=== PATIENT | male | born 1960 | race Caucasian/White ===

== ENCOUNTER 2022-03-29 08:11 | Inpatient (IN) | payer BC ==
[2022-03-29] MEDS ORDERED: SODIUM CHLORIDE 0.9% 1,000 ML IV STA ×2 (08:34→10:09)
--- NOTE | 2022-03-29 08:48 | ED ---
General Adult HPI - General Chief complaint: Syncope Stated complaint: syncope Time Seen by Provider: 03/29/22 08:21 Source: patient, RN notes reviewed, old records reviewed Mode of arrival: EMS - History of Present Illness Initial comments: Patient is a 62-year-old male with past medical history remarkable for alcohol abuse, currently in rehab, last drink 3 weeks ago who presents emergency Department complaining of lightheadedness. Patient has been having these symptoms since he stopped drinking alcohol 3 weeks ago. States it is not any worse than normal. However today when he got up to walk to his medications, he did feel very lightheaded and lowered himself down onto his butt. He did not lose consciousness. States he was "out of it." [place] sent him here for further evaluation. States he currently feels okay. Believes he is dehydrated. Denies lightheadedness, shortness of breath, chest pain. Has chronically yellow eyes. Endorse's improved lower extremity swelling since he stopped drinking alcohol. Denies cough, fevers, chills. Denies abdominal pain, nausea, vomiting. Chronically mildly distended abdomen. No other symptoms at this time. - Related Data Home Medications Medication Instructions Recorded Confirmed Ergocalciferol [Vitamin D2 (1250 1,250 mcg PO MO 03/29/22 03/29/22 Mcg = 78290 Iu)] Fluticasone/Umeclidin/Vilanter 1 puff INHALATION RT-DAILY 03/29/22 03/29/22 [Trelegy Ellipta 100-62.5-25] Folic Acid 1 mg PO DAILY 03/29/22 03/29/22 Lansoprazole [Prevacid] 30 mg PO AC-BRKFST 03/29/22 03/29/22 Losartan Potassium [Cozaar] 100 mg PO DAILY 03/29/22 03/29/22 Magnesium Oxide [Mag-Ox] 400 mg PO BID 03/29/22 03/29/22 Thiamine [Vitamin B-1] 100 mg PO DAILY 03/29/22 03/29/22 allopurinoL [Zyloprim] 100 mg PO DAILY 03/29/22 03/29/22 traZODone HCL [Desyrel] 50 - 150 mg PO HS 03/29/22 03/29/22 Allergies Allergy/AdvReac Type Severity Reaction Status Date / Time No Known Allergies Allergy Verified 03/29/22 10:15 Review of Systems ROS Statement: Those systems with pertinent positive or pertinent negative responses have been documented in the HPI. Review of Systems: CONST: Denies fever EYES: Denies blurry vision ENT: Denies nasal congestion C/V: Denies Chest pain RESP: Denies shortness of breath GI: Denies abdominal pain : Denies dysuria SKIN: Denies rash. MSK: Denies joint pain. NEURO: Denies headache ROS Other: All systems not noted in ROS Statement are negative. Past Medical History Past Medical History: Hypertension Additional Past Medical History / Comment(s): Gout, alcohol abuse-last used 03/09/22 History of Any Multi-Drug Resistant Organisms: None Reported Past Surgical History: Orthopedic Surgery Additional Past Surgical History / Comment(s): spleenectomy, vasectomy Smoking Status: Never smoker Past Alcohol Use History: Abuse Past Drug Use History: None Reported - Past Family History Father Family Medical History: No Reported History Additional Family Medical History / Comment(s): Father is healthy Mother Family Medical History: Hypertension General Exam - General Exam Comments Initial Comments: General: Appears in no acute distress. HEAD: Normal with no signs of head trauma. EYES: PERRLA, EOMI, Pupils are 3 mm and equal bilaterally. Scleral icterus is present. ENT: Hearing grossly intact, normal oropharynx. RESPIRATORY: Clear breath sounds bilaterally. No wheezes, rales, or rhonchi. C/V: Regular rate and rhythm. S1 and S2 auscultated, no edema, peripheral pulses 2+ and intact throughout ABD: Abdomen is soft, nontender. Chronically mild distention of the abdomen which is unchanged from baseline. EXT: Normal range of motion, no obvious deformity SKIN: No rashes or lesions observed on exposed skin. NEURO: Alert and oriented 4. No focal sensory strength deficits. Cranial nerves II through XII are intact. NIH is 0. GCS of 15. Course Vital Signs 03/29/22 08:14 Temperature 97.7 F Pulse Rate 109 H Respiratory 18 Rate Blood Pressure 127/76 O2 Sat by Pulse 99 Oximetry Medical Decision Making - Medical Decision Making Based on the patient's presentation and physical exam, he presents complaining of chronic lightheadedness. He believes he is dehydrated. States this has been ongoing for multiple weeks. Denies dizziness. Denies shortness of breath. Denies syncopal episodes. Denies worsening lower extremity edema or pain. Denies abdominal pain, nausea, vomiting. His chronic scleral icterus likely secondary to alcoholic liver disease. His no other acute symptoms at this time. Presents over his lightheadedness episode that he had earlier today at rehab. We'll obtain a broad workup including screening EKG as well as abdominal laboratory studies. He will be given a 1 L fluid bolus. Patient was in agreement this plan.Vital signs are remarkable for mild sinus tachycardia. Otherwise vitals are within normal limits. EKG shows no signs of acute ischemia.Lavatory studies are remarkable for a chronic macrocytic anemia. Patient's initial lactic acid is slightly elevated at 2.3. Patient has elevated bili is as well as liver function studies. These are likely chronic. Patient also has what appears to be an [place] eye of unknown chronicity. Remainder of the labs are unremarkable. I discussed times the patient. He believes that the bilirubin is lower than normal but cannot recall what it is been in the past. Orthostatics seem to be positive as well. Did recommend admission for IV fluids. He was in agreement this plan. We'll obtain ultrasounds of the liver and gallbladder as well. Ultrasounds revealed hepatic steatosis. There is a contracted gallbladder. There is also a cystic lesion in the right kidney. After the patient on these results. He will be admitted. I spoke with the admitting physician, Dr. Hernandez accepted the patient. Patient was admitted to observation. - Lab Data Result diagrams: 03/29/22 08:43 03/29/22 08:43 Lab Results 03/29/22 03/29/22 03/29/22 Range/Units 08:35 08:43 08:43 WBC 10.6 (3.8-10.6) k/uL RBC 2.65 L (4.30-5.90) m/uL Hgb 10.4 L (13.0-17.5) gm/dL Hct 32.6 L (39.0-53.0) % MCV 123.1 H (80.0-100.0) fL MCH 39.3 H (25.0-35.0) pg MCHC 31.9 (31.0-37.0) g/dL RDW 15.3 (11.5-15.5) % Plt Count 154 (150-450) k/uL MPV 11.5 Neutrophils % 68 % Lymphocytes % 21 % Monocytes % 5 % Eosinophils % 3 % Basophils % 1 % Neutrophils # 7.2 (1.3-7.7) k/uL Lymphocytes # 2.3 (1.0-4.8) k/uL Monocytes # 0.6 (0-1.0) k/uL Eosinophils # 0.3 (0-0.7) k/uL Basophils # 0.1 (0-0.2) k/uL Manual Slide Review Performed Large Platelets Present Hypochromasia Moderate Anisocytosis (manual) Present Macrocytosis Marked A Target Cells Present Sodium 137 (137-145) mmol/L Potassium 3.8 (3.5-5.1) mmol/L Chloride 110 H (98-107) mmol/L Carbon Dioxide 22 (22-30) mmol/L Anion Gap 5 mmol/L BUN 25 H (9-20) mg/dL Creatinine 1.61 H (0.66-1.25) mg/dL Est GFR (CKD-EPI)AfAm 53 (>60 ml/min/1.73 sqM) Est GFR (CKD-EPI)NonAf 46 (>60 ml/min/1.73 sqM) Glucose 142 H (74-99) mg/dL POC Glucose (mg/dL) (70-110) mg/dL POC Glu Director Multimedia ID Lactic Ac Sepsis Rflx Plasma Lactic Acid Tacos (0.7-2.0) mmol/L Calcium 8.3 L (8.4-10.2) mg/dL Total Bilirubin 6.8 H (0.2-1.3) mg/dL AST 146 H (17-59) U/L ALT 54 H (4-49) U/L Alkaline Phosphatase 296 H (38-126) U/L Total Protein 5.8 L (6.3-8.2) g/dL Albumin 2.6 L (3.5-5.0) g/dL Amylase 52 (30-110) U/L Lipase 185 (23-300) U/L Urine Color Yellow Urine Appearance Clear (Clear) Urine pH 6.5 (5.0-8.0) Ur Specific Squires 1.011 (1.001-1.035) Urine Protein Negative (Negative) Urine Glucose (UA) Negative (Negative) Urine Ketones Negative (Negative) Urine Blood Negative (Negative) Urine Nitrite Negative (Negative) Urine Bilirubin 1+ H (Negative) Urine Urobilinogen <2.0 (<2.0) mg/dL Ur Leukocyte Esterase Negative (Negative) Urine Opiates Screen Not Detected (NotDetected) Ur Oxycodone Screen Not Detected (NotDetected) Urine Methadone Screen Not Detected (NotDetected) Ur Propoxyphene Screen Not Detected (NotDetected) Ur Barbiturates Screen Not Detected (NotDetected) U Tricyclic Antidepress Not Detected (NotDetected) Ur Phencyclidine Scrn Not Detected (NotDetected) Ur Amphetamines Screen Not Detected (NotDetected) U Methamphetamines Scrn Not Detected (NotDetected) U Benzodiazepines Scrn Not Detected (NotDetected) Urine Cocaine Screen Not Detected (NotDetected) U Marijuana (THC) Screen Not Detected (NotDetected) Serum Alcohol <10 mg/dL Acetone, Qual Negative (Negative) 03/29/22 03/29/22 03/29/22 Range/Units 08:43 08:50 09:24 WBC (3.8-10.6) k/uL RBC (4.30-5.90) m/uL Hgb (13.0-17.5) gm/dL Hct (39.0-53.0) % MCV (80.0-100.0) fL MCH (25.0-35.0) pg MCHC (31.0-37.0) g/dL RDW (11.5-15.5) % Plt Count (150-450) k/uL MPV Neutrophils % % Lymphocytes % % Monocytes % % Eosinophils % % Basophils % % Neutrophils # (1.3-7.7) k/uL Lymphocytes # (1.0-4.8) k/uL Monocytes # (0-1.0) k/uL Eosinophils # (0-0.7) k/uL Basophils # (0-0.2) k/uL Manual Slide Review Large Platelets Hypochromasia Anisocytosis (manual) Macrocytosis Target Cells Sodium (137-145) mmol/L Potassium (3.5-5.1) mmol/L Chloride (98-107) mmol/L Carbon Dioxide (22-30) mmol/L Anion Gap mmol/L BUN (9-20) mg/dL Creatinine (0.66-1.25) mg/dL Est GFR (CKD-EPI)AfAm (>60 ml/min/1.73 sqM) Est GFR (CKD-EPI)NonAf (>60 ml/min/1.73 sqM) Glucose (74-99) mg/dL POC Glucose (mg/dL) 132 H (70-110) mg/dL POC Glu Director Multimedia ID Tyrel Weir Lactic Ac Sepsis Rflx Y Plasma Lactic Acid Tacos 2.3 H* (0.7-2.0) mmol/L Calcium (8.4-10.2) mg/dL Total Bilirubin (0.2-1.3) mg/dL AST (17-59) U/L ALT (4-49) U/L Alkaline Phosphatase (38-126) U/L Total Protein (6.3-8.2) g/dL Albumin (3.5-5.0) g/dL Amylase (30-110) U/L Lipase (23-300) U/L Urine Color Urine Appearance (Clear) Urine pH (5.0-8.0) Ur Specific Squires (1.001-1.035) Urine Protein (Negative) Urine Glucose (UA) (Negative) Urine Ketones (Negative) Urine Blood (Negative) Urine Nitrite (Negative) Urine Bilirubin (Negative) Urine Urobilinogen (<2.0) mg/dL Ur Leukocyte Esterase (Negative) Urine Opiates Screen (NotDetected) Ur Oxycodone Screen (NotDetected) Urine Methadone Screen (NotDetected) Ur Propoxyphene Screen (NotDetected) Ur Barbiturates Screen (NotDetected) U Tricyclic Antidepress (NotDetected) Ur Phencyclidine Scrn (NotDetected) Ur Amphetamines Screen (NotDetected) U Methamphetamines Scrn (NotDetected) U Benzodiazepines Scrn (NotDetected) Urine Cocaine Screen (NotDetected) U Marijuana (THC) Screen (NotDetected) Serum Alcohol mg/dL Acetone, Qual (Negative) - EKG Data -: EKG Interpreted by Me EKG Comments: 12-lead Electrocardiogram Interpretation Note EKG was reviewed and interpreted by myself. 12-lead ECG performed at 0822 is interpreted by me as revealing mild sinus tachycardia at a rate of 108 beats per minute. [place] is normal. NV interval is 250 ms. First-degree AV block. QRS duration is 102 ms, QTc is 420 ms.. There were no ST or T wave abnormalities to suggest myocardial ischemia or injury. R wave progression across the precordium was satisfactory. By my interpretation this EKG is non-diagnostic for acute ischemia. Disposition Clinical Impression: Dehydration, KEITH (acute kidney injury), Orthostatic hypotension, Alcoholic liver disease, Hyperbilirubinemia Disposition: ADMITTED IP TO THIS HOSP Condition: Stable Time of Disposition: 10:19
[2022-03-29 08:51] LABS: Glucose,Whole Blood 132 mg/dL (70-110)
[2022-03-29 09:16] LABS: ALT 54 U/L (4-49); AST 146 U/L (17-59); African American GFR (CKD) 53 (>60 ml/min/1.73 sqM); Albumin 2.6 g/dL (3.5-5.0); Alcohol <10 mg/dL; Alkaline Phosphatase 296 U/L (38-126); Amylase 52 U/L (30-110); Anion Gap 5 mmol/L; Blood Urea Nitrogen 25 mg/dL (9-20); Calcium 8.3 mg/dL (8.4-10.2); Carbon Dioxide 22 mmol/L (22-30); Chloride 110 mmol/L (98-107); Glucose 142 mg/dL (74-99); Lipase 185 U/L (23-300); Non-African American GFR(CKD) 46 (>60 ml/min/1.73 sqM); Potassium 3.8 mmol/L (3.5-5.1); Sodium 137 mmol/L (137-145); Total Bilirubin 6.8 mg/dL (0.2-1.3); Total Protein 5.8 g/dL (6.3-8.2)
--- NOTE | 2022-03-29 09:19 | XR ---
EXAMINATION TYPE: XR chest 2V DATE OF EXAM: 03/29/2022 COMPARISON: NONE HISTORY: Shortness of breath TECHNIQUE: Frontal and lateral views of the chest are obtained. FINDINGS: Scattered senescent parenchymal changes noted. Hyperinflation compatible with COPD. No evidence for infiltrate. No evidence for atelectasis. Heart size is stable. Mediastinal structures are stable and grossly unremarkable. No evidence for hilar prominence. Degenerative changes dorsal spine. IMPRESSION: 1. No evidence for acute pulmonary disease.
[2022-03-29 09:43] LABS: Basophils # (A) 0.1 k/uL (0-0.2); Basophils % (A) 1 %; Eosinophils # (A) 0.3 k/uL (0-0.7); Eosinophils % (A) 3 %; HCT 32.6 % (39.0-53.0); HGB 10.4 gm/dL (13.0-17.5); Hypochromasia Moderate; Lymphocytes # (A) 2.3 k/uL (1.0-4.8); Lymphocytes % (A) 21 %; MCH 39.3 pg (25.0-35.0); MCHC 31.9 g/dL (31.0-37.0); MCV 123.1 fL (80.0-100.0); Macrocytosis Marked; Mean Platelet Volume 11.5; Monocytes # (A) 0.6 k/uL (0-1.0); Monocytes % (A) 5 %; Neutrophils # (A) 7.2 k/uL (1.3-7.7); Neutrophils % (A) 68 %; RBC 2.65 m/uL (4.30-5.90); RDW 15.3 % (11.5-15.5); WBC 10.6 k/uL (3.8-10.6)
[2022-03-29 09:59] LABS: Anisocytosis (M) Present; Large Platelets Present; Target Cells Present
[2022-03-29 10:00] LABS: Platelet Count 154 k/uL (150-450)
[2022-03-29] MEDS ORDERED: NALOXONE 0.4 MG/ML 1 ML VIAL IV PRN (10:28)
[2022-03-29] MEDS ORDERED: SODIUM CHLORIDE 0.45% 1,000 ML IV SCH (10:30)
--- NOTE | 2022-03-29 11:37 | US ---
EXAMINATION TYPE: US gallbladder DATE OF EXAM: 03/29/2022 COMPARISON: NONE CLINICAL HISTORY: Hyperbilirubinemia. Hyperbilirubinemia. 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 EXAM MEASUREMENTS: Liver Length: 17.3 cm, limited measurement. Gallbladder Wall: Unable to accurately measure, appears partially contracted. Right Kidney: 12.4 x 5.5 x 5.4 cm Exam is limited due to gas. Pancreas: Not well seen. Liver: Measures upper limits, although exam is limited. Appears very heterogeneous and coarse in echo texture. Increased attenuation. Limited. Gallbladder: Appears partially contracted. Unable to properly evaluate. Evidence for sonographic Castro's sign: No CBD: Obscured. Right Kidney: Measures slightly enlarged versus upper limits. Anechoic area versus having minimal int ernal echoes within seen upper pole laterally: 5.5 x 4.7 x 4.3 cm. IMPRESSION: 1. Hepatic steatosis versus diffuse hepatocellular disease. Correlate clinically. 2. Partially contracted gallbladder. 3. Complex cystic lesion right kidney. Consider CT correlation.
[2022-03-29 12:13] LABS: Appearance,Urine Clear (Clear); Bilirubin,Urine 1+ (Negative); Blood,Urine Negative (Negative); Color,Urine Yellow; Glucose,Urine (UA) Negative (Negative); Ketones,Urine Negative (Negative); Leukocyte Esterase,Urine Negative (Negative); Nitrite,Urine Negative (Negative); PH, Urine 6.5 (5.0-8.0); Protein,Urine Negative (Negative); Specific Gravity,Urine 1.011 (1.001-1.035); Urobilinogen,Urine <2.0 mg/dL (<2.0)
--- NOTE | 2022-03-29 12:22 | P.HPIM ---
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 Patient presented to the emergency department with a chief complaint of dizziness/lightheadedness. Patient reports he began experiencing these symptoms approximately 3 weeks ago after he stopped drinking and that since it has remained unchanged. He dizziness/lightheadedness only upon standing and reports this resolves simply by sitting or lying down. Patient denies having dizziness/lightheadedness if he turns his head in bed or upon sitting up in bed, reports only upon standing. He correlates this dizziness/lightheadedness with his decreased appetite as he reports also having a decreased appetite since stopping drinking alcohol. Patient reports today while experiencing the same dizziness upon getting up to get his medications, he lowered himself to the ground and sat down. Patient denies having any loss of consciousness, reports just feeling dizzy and a little out of it, so [facility] sent him to the emergency department for evaluation. Patient currently denies having any headache, changes in vision or hearing, chest pain or palpitations, shortness of breath, abdominal pain, nausea, vomiting, or experiencing any increased swelling/weakness/tingling/numbness in extremities. Patient reports chronic lower extremity edema that he reports being unchanged as well as occasional photosensitivity. 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 Patient underwent full evaluation in the emergency department. EKG completed showing sinus tachycardia at 108 bpm with no noted T-wave or ST abnormalities showing no signs of acute ischemia. Chest x-ray negative for acute cardiopulmonary process. CBC revealing macrocytic hyperchromic anemia with hemoglobin of 10.4. BMP revealing hyperchloremia with chloride of 110 and elevated renal function with BUN 25, creatinine 1.61, and GFR 46 unknown baseline creatinine as no labs available for comparison. Initial lactic acid was 2.3 patient received a 1 L bolus with repeat lactate decreasing to 1.7. Liver profile revealing transaminitis and hyperbilirubinemia. AST 146, ALP 54, alkaline phosphatase of 296, and total bili of 6.8. An ultrasound of gallbladder was then completed revealing hepatic steatosis vs diffuse hepatocellular disease with partially contracted gallbladder and complex cystic lesion on the right kidney. Patient admitted under our services with consultation to gastroenterology. Review of systems: Pertinent positives and negatives as discussed in HPI, a complete review of systems was performed and all other systems are negative. Physical exam: Vital signs reviewed and stable. General: Nontoxic, no distress and appears stated age. Derm: Skin warm and dry, jaundice Head: Atraumatic, normocephalic and symmetric. Eyes: EOMs intact, no lid lag, and scleral icterus present Mouth: no lip lesions, mucus membranes moist Cardiovascular: regular rate and rhythm with normal S1S2, systolic murmur, positive posterior tibial pulses bilaterally, and cap refill < 2 seconds. Lungs: Respirations even, regular, and unlabored on room air. Lungs CTA bilaterally, no rhonchi, no rales, no wheezing, and no accessory muscle usage. Abdominal: Cirrhotic abdomen, nontender to palpation, no guarding, Ext: ROM intact. No gross muscle atrophy, bilateral lower extremity edema, no contractures Neuro: Speech clear, face symmetrical and CN II-XII grossly intact with no noted focal neuro deficits Psych: Alert and oriented to person, place, time, and situation. Appropriate and pleasant affect. Assessment and Plan of Care: Dizziness/lightheadedness Transaminitis Hyperbilirubinemia Alcoholic liver cirrhosis -Meld score of 25 points. 19.6% estimated 3 month mortality -Liver profile revealing transaminitis and hyperbilirubinemia. AST 146, ALP 54, alkaline phosphatase of 296, and total bili of 6.8. -An ultrasound of gallbladder revealing hepatic steatosis vs diffuse hepatocellular disease with partially contracted gallbladder and complex cystic lesion on the right kidney. -Gastroenterology consulted, appreciate recommendations. -Monitor orthostatic vitals. -Telemetry monitoring -Echocardiogram Complex cystic lesion -Recommend outpatient follow-up with CT to further evaluate cystic lesion. Hypertension -Monitor vital signs and continue daily medication regimen with losartan. Elevated creatinine -Suspect baseline for patient - Repeat in AM The patient is admitted with an anticipated greater than than 2 midnight stay for evaluation of transaminitis and hyperbilirubinemia with meld score of 25 CODE STATUS: Full code DVT prophylaxis: Heparin Discussed with: Patient and RN Anticipated discharge date: clinical course to determine Anticipated discharge place: Home A total of 48 minutes was spent on the care of this complex patient more than 50% of the time was spent in counseling and care coordination. Orlin Segovia NP rendered care for this patient independently, reviewed the findings and plan as documented in the note above. I did not physically speak with or examine the patient on this date. Past Medical History Past Medical History: Hypertension Additional Past Medical History / Comment(s): Gout, alcohol abuse-last used 03/09/22 History of Any Multi-Drug Resistant Organisms: None Reported Past Surgical History: Orthopedic Surgery Additional Past Surgical History / Comment(s): spleenectomy, vasectomy Past Anesthesia/Blood Transfusion Reactions: No Reported Reaction Additional Past Anesthesia/Blood Transfusion Reaction / Comment(s): Pt has received platelets in the past without reaction. Smoking Status: Never smoker Past Alcohol Use History: Abuse Past Drug Use History: None Reported - Past Family History Father Family Medical History: No Reported History Additional Family Medical History / Comment(s): Father is healthy Mother Family Medical History: Hypertension Medications and Allergies Home Medications Medication Instructions Recorded Confirmed Type Ergocalciferol [Vitamin D2 (1250 1,250 mcg PO MO 03/29/22 03/29/22 History Mcg = 39928 Iu)] Fluticasone/Umeclidin/Vilanter 1 puff INHALATION RT-DAILY 03/29/22 03/29/22 History [Trelegy Ellipta 100-62.5-25] Folic Acid 1 mg PO DAILY 03/29/22 03/29/22 History Lansoprazole [Prevacid] 30 mg PO AC-BRKFST 03/29/22 03/29/22 History Losartan Potassium [Cozaar] 100 mg PO DAILY 03/29/22 03/29/22 History Magnesium Oxide [Mag-Ox] 400 mg PO BID 03/29/22 03/29/22 History Thiamine [Vitamin B-1] 100 mg PO DAILY 03/29/22 03/29/22 History allopurinoL [Zyloprim] 100 mg PO DAILY 03/29/22 03/29/22 History traZODone HCL [Desyrel] 50 - 150 mg PO HS 03/29/22 03/29/22 History Allergies Allergy/AdvReac Type Severity Reaction Status Date / Time No Known Allergies Allergy Verified 03/29/22 10:15 Physical Exam Osteopathic Statement: *. No significant issues noted on an osteopathic structural exam other than those noted in the History and Physical/Consult. Vitals: Vital Signs Temp Pulse Resp BP Pulse Ox 03/29/22 11:16 98.1 F 111 H 18 132/81 98 03/29/22 08:14 97.7 F 109 H 18 127/76 99 Intake and Output 03/28/22 03/29/22 03/29/22 22:59 06:59 14:59 Other: Weight 111.13 kg Results CBC & Chem 7: 03/29/22 08:43 03/29/22 08:43 Labs: Abnormal Lab Results - Last 24 Hours (Table) 03/29/22 03/29/22 03/29/22 Range/Units 08:43 08:43 08:43 RBC 2.65 L (4.30-5.90) m/uL Hgb 10.4 L (13.0-17.5) gm/dL Hct 32.6 L (39.0-53.0) % MCV 123.1 H (80.0-100.0) fL MCH 39.3 H (25.0-35.0) pg Macrocytosis Marked A Chloride 110 H (98-107) mmol/L BUN 25 H (9-20) mg/dL Creatinine 1.61 H (0.66-1.25) mg/dL Glucose 142 H (74-99) mg/dL POC Glucose (mg/dL) (70-110) mg/dL Plasma Lactic Acid Tacos 2.3 H* (0.7-2.0) mmol/L Calcium 8.3 L (8.4-10.2) mg/dL Total Bilirubin 6.8 H (0.2-1.3) mg/dL AST 146 H (17-59) U/L ALT 54 H (4-49) U/L Alkaline Phosphatase 296 H (38-126) U/L Total Protein 5.8 L (6.3-8.2) g/dL Albumin 2.6 L (3.5-5.0) g/dL 03/29/22 Range/Units 08:50 RBC (4.30-5.90) m/uL Hgb (13.0-17.5) gm/dL Hct (39.0-53.0) % MCV (80.0-100.0) fL MCH (25.0-35.0) pg Macrocytosis Chloride (98-107) mmol/L BUN (9-20) mg/dL Creatinine (0.66-1.25) mg/dL Glucose (74-99) mg/dL POC Glucose (mg/dL) 132 H (70-110) mg/dL Plasma Lactic Acid Tacos (0.7-2.0) mmol/L Calcium (8.4-10.2) mg/dL Total Bilirubin (0.2-1.3) mg/dL AST (17-59) U/L ALT (4-49) U/L Alkaline Phosphatase (38-126) U/L Total Protein (6.3-8.2) g/dL Albumin (3.5-5.0) g/dL Thrombosis Risk Factor Assmnt - Choose All That Apply Any of the Below Risk Factors Present?: Yes Each Factor Represents 1 point: Age 41-60 years, Obesity (BMI >25), Swollen legs (current) Other Risk Factors: No Other congenital or acquired thrombophilia - If yes, enter type in comment: No Thrombosis Risk Factor Assessment Total Risk Factor Score: 3 Thrombosis Risk Factor Assessment Level: Moderate Risk
[2022-03-29 12:26] LABS: Amphetamine Screen,Urine Not Detected (NotDetected); Barbiturate Screen,Urine Not Detected (NotDetected); Benzodiazepines Screen,Urine Not Detected (NotDetected); Cocaine Screen,Urine Not Detected (NotDetected); Methadone Screen, Urine Not Detected (NotDetected); Opiate Screen,Urine Not Detected (NotDetected); Oxycodone Screen, Urine Not Detected (NotDetected); Phencyclidine Screen,Urine Not Detected (NotDetected); Tricyclic Antidepressant,Urine Not Detected (NotDetected); Urn Cannabinoid Scrn Not Detected (NotDetected)
[2022-03-29 13:35] LABS: INR 1.2 (<1.2); Prothrombin Time 12.9 sec (9.0-12.0)
--- NOTE | 2022-03-29 14:19 | P.CONS ---
History of Present Illness - Reason for Consult Consult date: 03/29/22 Transaminitis with hyperbilirubinemia Requesting physician: Orlin Segovia - Chief Complaint Dizziness - History of Present Illness This is a pleasant 62-year-old male with a past medical history of hypertension, gout, and alcohol abuse who presented from inpatient rehab for complaints of dizziness and lightheadedness. Apparently today when he was getting up to take his medications he felt dizzy and sat himself down, he did not lose any consciousness, he did not fall. They sent him to the emergency department for further evaluation. Patient states he has been seen at [facility] recently for liver disease. He states he has been an alcoholic for 45 years, drinking daily. He states his last drink was approximately 2 weeks ago. He states he has been yellow for quite a while and was told by a coworker. He denies any abdominal pain, nausea, or vomiting. As part of his workup he was noted to have elevated LFTs and underwent gallbladder ultrasound. Gallbladder ultrasound reports hepatic steatosis versus diffuse hepatocellular disease. Correlate clinically. Partially contracted gallbladder. Complex cystic lesion right kidney. Labs: WBC 10.6 hemoglobin 10.4 hematocrit 32.6 platelet count 154,000 INR 1.2 sodium 137 potassium 3.8 BUN 25 creatinine 1.61 glucose 142 lactic acid 1.7 total bilirubin 6.8 AST 146 ALT 54 alkaline phosphatase 296 amylase 52 lipase 185 Review of Systems REVIEW OF SYSTEMS: CARDIOPULMONARY: No chest pain or shortness of breath. Gastrointestinal: No abdominal pain. No abdominal distention No nausea or vomiting. No hematemesis, coffee-ground emesis. No rectal bleeding, or melena. GENITOURINARY: No dysuria or hematuria. MUSCULOSKELETAL: Reports normal range of motion., Joint pain. SKIN: No rashes. No jaundice. ENDOCRINE: No chills, fevers. No excessive weight gain or loss. No polydipsia or polyuria. PSYCHIATRIC: Unremarkable. NEUROLOGY: No change in mental status. Lightheaded while standing. CONSTITUTIONAL: No recent weight loss. No fever, chills, night sweats. Past Medical History Past Medical History: Hypertension Additional Past Medical History / Comment(s): Gout, alcohol abuse-last used 03/09/22 History of Any Multi-Drug Resistant Organisms: None Reported Past Surgical History: Orthopedic Surgery Additional Past Surgical History / Comment(s): spleenectomy, vasectomy Past Anesthesia/Blood Transfusion Reactions: No Reported Reaction Additional Past Anesthesia/Blood Transfusion Reaction / Comm: Pt has received platelets in the past without reaction. Smoking Status: Never smoker Past Alcohol Use History: Abuse Past Drug Use History: None Reported - Past Family History Father Family Medical History: No Reported History Additional Family Medical History / Comment(s): Father is healthy Mother Family Medical History: Hypertension Medications and Allergies Home Medications Medication Instructions Recorded Confirmed Type Ergocalciferol [Vitamin D2 (1250 1,250 mcg PO MO 03/29/22 03/29/22 History Mcg = 90746 Iu)] Fluticasone/Umeclidin/Vilanter 1 puff INHALATION RT-DAILY 03/29/22 03/29/22 History [Trelegy Ellipta 100-62.5-25] Folic Acid 1 mg PO DAILY 03/29/22 03/29/22 History Lansoprazole [Prevacid] 30 mg PO AC-BRKFST 03/29/22 03/29/22 History Losartan Potassium [Cozaar] 100 mg PO DAILY 03/29/22 03/29/22 History Magnesium Oxide [Mag-Ox] 400 mg PO BID 03/29/22 03/29/22 History Thiamine [Vitamin B-1] 100 mg PO DAILY 03/29/22 03/29/22 History allopurinoL [Zyloprim] 100 mg PO DAILY 03/29/22 03/29/22 History traZODone HCL [Desyrel] 50 - 150 mg PO HS 03/29/22 03/29/22 History Allergies Allergy/AdvReac Type Severity Reaction Status Date / Time No Known Allergies Allergy Verified 03/29/22 10:15 Physical Exam Vitals: Vital Signs Temp Pulse Pulse Pulse Pulse Resp BP 03/29/22 12:30 112 H 128 H 110 H 03/29/22 11:16 98.1 F 111 H 18 132/81 03/29/22 08:14 97.7 F 109 H 18 127/76 BP BP BP Pulse Ox 03/29/22 12:30 115/78 105/70 121/82 03/29/22 11:16 98 03/29/22 08:14 99 Intake and Output 03/28/22 03/29/22 03/29/22 22:59 06:59 14:59 Other: # Voids 1 Weight 111.13 kg General appearance: The patient is alert, oriented, appears in no acute distress. HET: Head is normocephalic and atraumatic. Conjunctiva pink. Sclera icteric. Neck: Supple without lymphadenopathy. Trachea midline. Heart: S1 S2. Regular rate and rhythm. Lungs: Clear to auscultation. Abdomen: Soft, nontender, nondistended with bowel sounds. No guarding or rigidity. Skin: No rashes. Jaundice. Extremities: Normal skin color and turgor. No pedal edema. Neurological: No focal deficits. Alert and oriented x3. Results CBC & Chem 7: 03/29/22 08:43 03/29/22 08:43 Labs: Abnormal Lab Results - Last 24 Hours (Table) 03/29/22 03/29/22 03/29/22 Range/Units 08:35 08:43 08:43 RBC 2.65 L (4.30-5.90) m/uL Hgb 10.4 L (13.0-17.5) gm/dL Hct 32.6 L (39.0-53.0) % MCV 123.1 H (80.0-100.0) fL MCH 39.3 H (25.0-35.0) pg Macrocytosis Marked A PT (9.0-12.0) sec INR (<1.2) Chloride 110 H (98-107) mmol/L BUN 25 H (9-20) mg/dL Creatinine 1.61 H (0.66-1.25) mg/dL Glucose 142 H (74-99) mg/dL POC Glucose (mg/dL) (70-110) mg/dL Plasma Lactic Acid Tacos (0.7-2.0) mmol/L Calcium 8.3 L (8.4-10.2) mg/dL Total Bilirubin 6.8 H (0.2-1.3) mg/dL AST 146 H (17-59) U/L ALT 54 H (4-49) U/L Alkaline Phosphatase 296 H (38-126) U/L Total Protein 5.8 L (6.3-8.2) g/dL Albumin 2.6 L (3.5-5.0) g/dL Urine Bilirubin 1+ H (Negative) 07/20/22 07/20/22 07/20/22 Range/Units 08:43 08:50 12:49 RBC (4.30-5.90) m/uL Hgb (13.0-17.5) gm/dL Hct (39.0-53.0) % MCV (80.0-100.0) fL MCH (25.0-35.0) pg Macrocytosis PT 12.9 H (9.0-12.0) sec INR 1.2 H (<1.2) Chloride (98-107) mmol/L BUN (9-20) mg/dL Creatinine (0.66-1.25) mg/dL Glucose (74-99) mg/dL POC Glucose (mg/dL) 132 H (70-110) mg/dL Plasma Lactic Acid Tacos 2.3 H* (0.7-2.0) mmol/L Calcium (8.4-10.2) mg/dL Total Bilirubin (0.2-1.3) mg/dL AST (17-59) U/L ALT (4-49) U/L Alkaline Phosphatase (38-126) U/L Total Protein (6.3-8.2) g/dL Albumin (3.5-5.0) g/dL Urine Bilirubin (Negative) US - abdomen: report reviewed (As stated in HPI) Assessment and Plan (1) Alcoholic liver disease Narrative/Plan: this is 62-year-old male with a recent diagnosis of alcoholic liver disease. He was recently seen and treated at [facility] for jaundice. He states he has been jaundiced for some time. He has a 45 year history of heavy alcohol abuse. He states his last treatment was proximally 2 weeks ago and is currently at [place] re[facility]. He presented to the emergency department for lightheadedness and dizziness while standing. Labs are consistent with the underlying alcoholic liver disease. No further workup at this time. Patient to follow-up with olive grower Dawson Allred. Current Visit: Yes Status: Acute Code(s): K70.9 - ALCOHOLIC LIVER DISEASE, UNSPECIFIED SNOMED Code(s): 39097614 (2) Transaminitis Current Visit: Yes Status: Acute Code(s): R74.01 - ELEVATION OF LEVELS OF LIVER TRANSAMINASE LEVELS SNOMED Code(s): 640817037 (3) Hyperbilirubinemia Current Visit: Yes Status: Acute Code(s): E80.6 - OTHER DISORDERS OF BILIRUBIN METABOLISM SNOMED Code(s): 62833060 (4) Alcohol abuse Current Visit: Yes Status: Acute Code(s): F10.10 - ALCOHOL ABUSE, UNCOMPLICATED SNOMED Code(s): 28643286 (5) Dizziness Current Visit: Yes Status: Acute Code(s): R42 - DIZZINESS AND GIDDINESS SNOMED Code(s): 177431040 Plan: 1. Continue symptomatic and supportive care 2. Daily CBC, CMP 3. Recommend alcohol abstinence 4. Patient to follow-up with olive grower out of [facility] 5. Continue medical management Thank you for this consultation, we will continue to follow. Dr. René Hernández I agree with the dictator's note, documented as a scribe by Anna Neal.
[2022-03-29] MEDS ORDERED: ZOLPIDEM 5 MG TAB PO ONE (21:39)
[2022-03-29] MEDS: MAGNESIUM OXIDE 400 MG TAB PO SCH (21:53)
[2022-03-29] MEDS: HEPARIN SODIUM,PORCINE/PF 5,000 UNIT/0.5 ML SYRINGE SQ SCH (23:40)
[2022-03-30] MEDS: SYMBICORT 80-4.5 MCG INHALER INHALATION SCH ×2 (07:29→19:51)
[2022-03-30] MEDS: IPRATROPIUM 0.5 MG/2.5 ML NEBU INHALATION SCH ×4 (07:29→19:51)
[2022-03-30] MEDS ORDERED: NON FORMULARY DRUG (Fluticasone/Umeclidin/Vilanter [Trelegy Ellipta 100-62.5-25] 1 EACH Bl INHALATION SCH (08:00)
[2022-03-30] MEDS ORDERED: LOSARTAN 50 MG TAB PO SCH (09:00)
[2022-03-30 09:24] LABS: African American GFR (CKD) 94.4 (60.0-200.0); Albumin 2.4 g/dL (3.8-4.9); Albumin/Globulin Ratio 1.04 (1.60-3.17); Anion Gap 8.5 mmol/L (10.00-18.00); BUN/Creat Ratio 16.1 Ratio (12.00-20.00); Blood Urea Nitrogen 16.1 mg/dL (9.0-27.0); Calcium 8.2 mg/dL (8.7-10.3); Carbon Dioxide 19.5 mmol/L (20.0-27.5); Globulin 2.3 g/dL (1.6-3.3); Non-African American GFR(CKD) 81.4 (60.0-200.0); Potassium 4.4 mmol/L (3.5-5.5); Total Bilirubin 5.5 mg/dL (0.30-1.20); Total Protein 4.7 g/dL (6.2-8.2)
[2022-03-30] MEDS: allopurinoL 100 MG TAB PO SCH (09:25)
[2022-03-30] MEDS: HEPARIN SODIUM,PORCINE/PF 5,000 UNIT/0.5 ML SYRINGE SQ SCH ×3 (09:25→22:51)
[2022-03-30] MEDS: PANTOPRAZOLE 40 MG TABLET PO SCH (09:25)
[2022-03-30] MEDS: FOLIC ACID 1 MG TAB PO SCH (09:25)
[2022-03-30] MEDS: MAGNESIUM OXIDE 400 MG TAB PO SCH ×2 (09:25→20:13)
[2022-03-30 10:08] LABS: Eosinophils # (A) 0.62 X 10*3/uL (0.04-0.35); HCT 28.2 % (39.6-50.0); Immature Grans, Automated 1.1 %; Lymphocytes % (A) 26.3 %; MCHC 31.9 g/dL (32.0-37.0); MCV 112.8 fL (80.0-97.0); Macrocytosis (M) 2+; Mean Platelet Volume 13.5 fL (9.5-12.2); Monocytes # (A) 0.89 X 10*3/uL (0.20-1.00); Monocytes % (A) 8.7 %; NRBC Per 100 WBC 0 /100 WBCS (0.0-0.0); Neutrophils # (A) 5.85 X 10*3/uL (1.80-7.70); Neutrophils % (A) 56.9 %; Platelet Count 154 X 10*3/uL (140-440); RDW 16.7 % (11.5-14.5); Target Cells 2+; WBC 10.27 X 10*3/uL (4.50-10.00)
--- NOTE | 2022-03-30 11:33 | CA ---
Transthoracic Echo Report Name: Domo Baeza Age: 62 Gender: M : 1960 Exam Date: 03/30/2022 08:03 Exam Location: [facility] Ht (in): 62 Wt (lb): 234 Ordering Physician: Orlin Segovia Attending/Referring Phys: Auto Service Mechanic Glenna Cheung RDCS Procedure CPT: Indications: Evaluate structure and function of heart Cardiac Hx: Technical Quality: Good Contrast 1: Total Dose (mL): Contrast 2: N/A Total Dose (mL): MEASUREMENTS (Male / Female) Normal Values 2D ECHO LV Diastolic Diameter PLAX 5.7 cm 4.2 - 5.9 / 3.9 - 5.3 cm LV Systolic Diameter PLAX 3.9 cm IVS Diastolic Thickness 1.0 cm 0.6 - 1.0 / 0.6 - 0.9 cm LVPW Diastolic Thickness 0.9 cm 0.6 - 1.0 / 0.6 - 0.9 cm LV Relative Wall Thickness 0.3 RV Internal Dim ED PLAX 3.0 cm LA Systolic Diameter LX 4.4 cm 3.0 - 4.0 / 2.7 - 3.8 cm LA Volume 95.2 cm??? 18 - 58 / 22 - 52 cm??? M-MODE Aortic Root Diameter MM 2.8 cm MV E Point Septal Separation 0.3 cm DOPPLER MV Area PHT 3.6 cm??? Mitral E Point Velocity 79.2 cm/s Mitral A Point Velocity 69.2 cm/s Mitral E to A Ratio 1.1 MV Deceleration Time 213.0 ms MV E' Velocity 9.2 cm/s Mitral E to MV E' Ratio 8.6 TR Peak Velocity 267.1 cm/s TR Peak Gradient 28.5 mmHg Right Ventricular Systolic Press 33.5 mmHg FINDINGS Left Ventricle Left ventricular ejection fraction is estimated at 55%. Right Ventricle Normal right ventricular size and function. Right ventricular systolic pressure within normal limits. Right Atrium Normal right atrial size. Left Atrium Mild left atrial enlargement Mitral Valve Structurally normal mitral valve. Mild mitral regurgitation. Aortic Valve Trileaflet aortic valve. Tricuspid Valve Structurally normal tricuspid valve. Pulmonic Valve Pulmonic valve not well visualized. Pericardium Echo free space anterior to the right ventricle likely represents a fat pad. Aorta Normal size aortic root and proximal ascending aorta. CONCLUSIONS Left ventricular ejection fraction 55% Mild left atrial enlargement Mild mitral regurgitation No tricuspid regurgitation RVSP 33 Previewed by: Dr. Chapo Marroquin DO (Electronically Signed) Final Date: 30 March 2022 11:33
--- NOTE | 2022-03-30 15:00 | P.PN ---
Subjective Progress Note Date: 03/30/22 Principal diagnosis: Transaminitis This is a pleasant 62-year-old male with a past medical history of hypertension, gout, and alcohol abuse who presented from inpatient rehab for complaints of dizziness and lightheadedness. Apparently today when he was getting up to take his medications he felt dizzy and sat himself down, he did not lose any consciousness, he did not fall. They sent him to the emergency department for further evaluation. Patient states he has been seen at [facility] recently for liver disease. He states he has been an alcoholic for 45 years, drinking daily. He states his last drink was approximately 2 weeks ago. He states he has been yellow for quite a while and was told by a coworker. He denies any abdominal pain, nausea, or vomiting. As part of his workup he was noted to have elevated LFTs and underwent gallbladder ultrasound. Gallbladder ultrasound reports hepatic steatosis versus diffuse hepatocellular disease. Correlate clinically. Partially contracted gallbladder. Complex cystic lesion right kidney. 03/30/2022: Patient seen and examined is a follow-up for elevated LFTs. LFTs are trending down. Patient states he's feeling much better. Denies any dizziness. States he will plan to follow-up with redrying machine operator out of [facility]. No plans to return back to [place]. Denies any abdominal pain, nausea, or vomiting. Objective - Vital Signs Vital signs: Vital Signs Temp 98.2 F 03/30/22 07:00 Pulse 93 03/30/22 07:00 Resp 16 03/30/22 07:00 BP 116/57 03/30/22 07:00 Pulse Ox 98 03/30/22 07:00 FiO2 Intake & Output 03/29/22 03/30/22 03/30/22 18:59 06:59 18:59 Intake Total 118 Balance 118 Weight 111.13 kg Intake: Oral 118 Other: # Voids 1 1 - Exam General appearance: The patient is alert, oriented, appears in no acute distress. HET: Head is normocephalic and atraumatic. Conjunctiva pink. Sclera anicteric. Neck: Supple without lymphadenopathy. Abdomen: Soft, nontender, nondistended with bowel sounds. No guarding or rigidity. Extremities: Normal skin color and turgor. No pedal edema Skin: No rashes, no jaundice Neurological: No focal deficits. Alert and oriented -3. - Labs CBC & Chem 7: 03/30/22 05:03 03/30/22 05:03 Labs: Abnormal Lab Results - Last 24 Hours (Table) 03/29/22 03/29/22 03/30/22 Range/Units 08:35 12:49 05:03 WBC 10.27 H (4.50-10.00) X 10*3/uL RBC 2.50 L (4.40-5.60) X 10*6/uL Hgb 9.0 L (13.0-17.0) g/dL Hct 28.2 L (39.6-50.0) % MCV 112.8 H (80.0-97.0) fL MCH 36.0 H (27.0-32.0) pg MCHC 31.9 L (32.0-37.0) g/dL RDW 16.7 H (11.5-14.5) % MPV 13.5 H (9.5-12.2) fL Immature Gran # 0.11 H (0.00-0.04) X 10*3/uL Eosinophils # 0.62 H (0.04-0.35) X 10*3/uL PT 12.9 H (9.0-12.0) sec INR 1.2 H (<1.2) Chloride (96-109) mmol/L Carbon Dioxide (20.0-27.5) mmol/L Anion Gap (10.00-18.00) mmol/L Calcium (8.7-10.3) mg/dL Total Bilirubin (0.30-1.20) mg/dL AST (14-35) U/L ALT (10-49) U/L Alkaline Phosphatase (41-126) U/L Total Protein (6.2-8.2) g/dL Albumin (3.8-4.9) g/dL Albumin/Globulin Ratio (1.60-3.17) g/dL Urine Bilirubin 1+ H (Negative) 03/30/22 Range/Units 05:03 WBC (4.50-10.00) X 10*3/uL RBC (4.40-5.60) X 10*6/uL Hgb (13.0-17.0) g/dL Hct (39.6-50.0) % MCV (80.0-97.0) fL MCH (27.0-32.0) pg MCHC (32.0-37.0) g/dL RDW (11.5-14.5) % MPV (9.5-12.2) fL Immature Gran # (0.00-0.04) X 10*3/uL Eosinophils # (0.04-0.35) X 10*3/uL PT (9.0-12.0) sec INR (<1.2) Chloride 111 H (96-109) mmol/L Carbon Dioxide 19.5 L (20.0-27.5) mmol/L Anion Gap 8.50 L (10.00-18.00) mmol/L Calcium 8.2 L (8.7-10.3) mg/dL Total Bilirubin 5.50 H (0.30-1.20) mg/dL AST 129 H (14-35) U/L ALT 55 H (10-49) U/L Alkaline Phosphatase 253 H (41-126) U/L Total Protein 4.7 L (6.2-8.2) g/dL Albumin 2.4 L (3.8-4.9) g/dL Albumin/Globulin Ratio 1.04 L (1.60-3.17) g/dL Urine Bilirubin (Negative) Assessment and Plan (1) Alcoholic liver disease Narrative/Plan: this is 62-year-old male with a recent diagnosis of alcoholic liver disease. He was recently seen and treated at [facility] for jaundice. He states he has been jaundiced for some time. He has a 45 year history of heavy alcohol abuse. He states his last treatment was proximally 2 weeks ago and is [facility] at [facility]. He presented to the emergency department for lightheadedness and dizziness while standing. Labs are consistent with the underlying alcoholic liver disease. No further workup at this time. Patient to follow-up with redrying machine operator Dawson Allred. Current Visit: Yes Status: Acute Code(s): K70.9 - ALCOHOLIC LIVER DISEASE, UNSPECIFIED SNOMED Code(s): 06050623 (2) Transaminitis Current Visit: Yes Status: Acute Code(s): R74.01 - ELEVATION OF LEVELS OF LIVER TRANSAMINASE LEVELS SNOMED Code(s): 023734812 (3) Hyperbilirubinemia Current Visit: Yes Status: Acute Code(s): E80.6 - OTHER DISORDERS OF BILIRUBIN METABOLISM SNOMED Code(s): 85366246 (4) Alcohol abuse Current Visit: Yes Status: Acute Code(s): F10.10 - ALCOHOL ABUSE, UNCOMPLICATED SNOMED Code(s): 22282198 (5) Dizziness Current Visit: Yes Status: Acute Code(s): R42 - DIZZINESS AND GIDDINESS SNOMED Code(s): 436049769 Plan: 1. Continue symptomatic and supportive care 2. Daily CBC, CMP 3. Recommend alcohol abstinence 4. Patient to follow-up with redrying machine operator out of [facility] 5. Continue medical management Thank you for this consultation, the [facility] René Hernández I agree with the dictator's note, documented as a scribe by Anna Neal.
--- NOTE | 2022-03-30 16:49 | P.PN ---
Subjective Progress Note Date: 03/30/22 Hospital course: Patient is a very pleasant 62-year-old male with a past medical history of alcoholism with alcoholic liver cirrhosis currently in rehab reporting last alcoholic beverage being approximately 3 weeks ago, gout, hypertension, and history of a splenectomy. Patient presented to the emergency department with a chief complaint of dizziness/lightheadedness. Patient reports he began experiencing these symptoms approximately 3 weeks ago after he stopped drinking and that since it has remained unchanged. He dizziness/lightheadedness only upon standing and reports this resolves simply by sitting or lying down. Patient denies having dizziness/lightheadedness if he turns his head in bed or upon sitting up in bed, reports only upon standing. He correlates this dizziness/lightheadedness with his decreased appetite as he reports also having a decreased appetite since stopping drinking alcohol. Patient reports today while experiencing the same dizziness upon getting up to get his medications, he lowered himself to the ground and sat down. Patient denies having any loss of consciousness, reports just feeling dizzy and a little out of it, so [facility] sent him to the emergency department for evaluation. Patient currently denies having any headache, changes in vision or hearing, chest pain or palpitations, shortness of breath, abdominal pain, nausea, vomiting, or experiencing any increased swelling/weakness/tingling/numbness in extremities. Patient reports chronic lower extremity edema that he reports being unchanged as well as occasional photosensitivity. Patient states 10 years ago he was told he had the beginning stages of alcoholic liver cirrhosis, however states he was never told anything further regarding this and was never evaluated by a framing specialist or masonry inspector. Patient underwent full evaluation in the e mergency department. EKG completed showing sinus tachycardia at 108 bpm with no noted T-wave or ST abnormalities showing no signs of acute ischemia. Chest x- ray negative for acute cardiopulmonary process. CBC revealing macrocytic hyperchromic anemia with hemoglobin of 10.4. BMP revealing hyperchloremia with chloride of 110 and elevated renal function with BUN 25, creatinine 1.61, and GFR 46 unknown baseline creatinine as no labs available for comparison. Initial lactic acid was 2.3 patient received a 1 L bolus with repeat lactate decreasing to 1.7. Liver profile revealing transaminitis and hyperbilirubinemia. AST 146, ALP 54, alkaline phosphatase of 296, and total bili of 6.8. An ultrasound of gallbladder was then completed revealing hepatic steatosis vs diffuse hepatocellular disease with partially contracted gallbladder and complex cystic lesion on the right kidney. Patient admitted under our services with consultation to gastroenterology. Physical exam: Pt was seen and fully evaluated at bedside this morning. He reports feeling better while lying down and continues to have significant dizziness/lightheadedness upon standing. He continues to deny having any headache, changes in vision or hearing, chest pain or palpitations, shortness of breath, abdominal pain, nausea, vomiting, or experiencing any numbness/tingling/weakness/swelling in his extremities. Vital signs very positive for orthostatic hypotension and postural orthostatic tachycardia. Vitals as follows: Supine: 116/57 and heart rate 93; Sitting 106/70 and heart rate 103; Standing 70/46 with heart rate 121. Losartan discontinued and Patient started on low dose of midodrine 5 mg twice a day. Vital signs to be monitored closely and we will continue monitoring orthostatic vitals every shift. Vital signs reviewed and stable. General: Nontoxic, no distress and appears stated age. Derm: Skin warm and dry, jaundice Head: Atraumatic, normocephalic and symmetric. Eyes: EOMs intact, no lid lag, and scleral icterus present Mouth: no lip lesions, mucus membranes moist Cardiovascular: regular rate and rhythm with normal S1S2, systolic murmur, positive posterior tibial pulses bilaterally, and cap refill < 2 seconds. Lungs: Respirations even, regular, and unlabored on room air. Lungs CTA bilaterally, no rhonchi, no rales, no wheezing, and no accessory muscle usage. Abdominal: Cirrhotic abdomen, nontender to palpation, no guarding, Ext: ROM intact. No gross muscle atrophy, scant bilateral lower extremity edema, no contractures Neuro: Speech clear, face symmetrical and CN II-XII grossly intact with no noted focal neuro deficits Psych: Alert and oriented to person, place, time, and situation. Appropriate and pleasant affect. Assessment and Plan of Care: Alcoholic liver cirrhosis Transaminitis and hyperbilirubinemia, secondary to above Macrocytic hyperchromic anemia, secondary to above -Meld score of 25 points. 19.6% estimated 3 month mortality -An ultrasound of gallbladder revealing hepatic steatosis vs diffuse hepatocellular disease with partially contracted gallbladder and complex cystic lesion on the right kidney. -Gastroenterology following, appreciate recommendations. -Monitor orthostatic vitals. -Telemetry monitoring -Echocardiogram revealing EF of 55% with mild atrial enlargement and mild mitral regurgitation. -Continue to monitor with repeat a.m. labs. Orthostatic hypotension, likely secondary to above Dizziness/lightheadedness -Vitals as follows: Supine: 116/57 and heart rate 93; Sitting 106/70 and heart rate 103; Standing 70/46 with heart rate 121. -Losartan discontinued and Patient started on low dose of midodrine 5 mg twice a day. Vital signs to be monitored closely and we will continue monitoring orthostatic vitals every shift. Complex cystic lesion -Discussed with patient and Recommend outpatient follow-up with CT to further evaluate cystic lesion. Hypertension -Monitor vital signs. Losartan discontinued secondary to significantly positive orthostatic vitals. Acute kidney injury, resolved CODE STATUS: Full code DVT prophylaxis: Heparin Discussed with: Patient and RN Anticipated discharge date: clinical course to determine Anticipated discharge place: Home A total of 39 minutes was spent on the care of this complex patient more than 50% of the time was spent in counseling and care coordination. I reviewed the documentation as provided by the BRAYDEN above, who is the original author of this note. I agree with the documented assessment and plan, with the following changes: none Objective - Vital Signs Vital signs: Vital Signs Temp 98.3 F 03/30/22 14:57 Pulse 95 03/30/22 14:57 Resp 17 03/30/22 14:57 BP 106/67 03/30/22 14:57 Pulse Ox 97 03/30/22 14:57 FiO2 Intake & Output 03/29/22 03/30/22 03/30/22 18:59 06:59 18:59 Intake Total 118 Balance 118 Weight 111.13 kg Intake: Oral 118 Other: # Voids 1 1 4 - Labs CBC & Chem 7: 03/30/22 05:03 03/30/22 05:03 Labs: Abnormal Lab Results - Last 24 Hours (Table) 03/30/22 03/30/22 Range/Units 05:03 05:03 WBC 10.27 H (4.50-10.00) X 10*3/uL RBC 2.50 L (4.40-5.60) X 10*6/uL Hgb 9.0 L (13.0-17.0) g/dL Hct 28.2 L (39.6-50.0) % MCV 112.8 H (80.0-97.0) fL MCH 36.0 H (27.0-32.0) pg MCHC 31.9 L (32.0-37.0) g/dL RDW 16.7 H (11.5-14.5) % MPV 13.5 H (9.5-12.2) fL Immature Gran # 0.11 H (0.00-0.04) X 10*3/uL Eosinophils # 0.62 H (0.04-0.35) X 10*3/uL Chloride 111 H (96-109) mmol/L Carbon Dioxide 19.5 L (20.0-27.5) mmol/L Anion Gap 8.50 L (10.00-18.00) mmol/L Calcium 8.2 L (8.7-10.3) mg/dL Total Bilirubin 5.50 H (0.30-1.20) mg/dL AST 129 H (14-35) U/L ALT 55 H (10-49) U/L Alkaline Phosphatase 253 H (41-126) U/L Total Protein 4.7 L (6.2-8.2) g/dL Albumin 2.4 L (3.8-4.9) g/dL Albumin/Globulin Ratio 1.04 L (1.60-3.17) g/dL
[2022-03-30] MEDS: MIDODRINE 5 MG TAB PO SCH (17:35)
[2022-03-30 20:20] VITALS: RESP 18
[2022-03-30] MEDS ORDERED: traZODone HCL 50 MG TAB PO SCH (21:00)
[2022-03-31] MEDS: HEPARIN SODIUM,PORCINE/PF 5,000 UNIT/0.5 ML SYRINGE SQ SCH (08:24)
[2022-03-31] MEDS: MIDODRINE 5 MG TAB PO SCH (08:24)
[2022-03-31] MEDS: FOLIC ACID 1 MG TAB PO SCH (08:24)
[2022-03-31] MEDS: PANTOPRAZOLE 40 MG TABLET PO SCH (08:24)
[2022-03-31] MEDS: allopurinoL 100 MG TAB PO SCH (08:24)
[2022-03-31 08:25] VITALS: BP 110/71; PULSE 94; TEMP 98.2
[2022-03-31] MEDS: MAGNESIUM OXIDE 400 MG TAB PO SCH (08:31)
[2022-03-31] MEDS: IPRATROPIUM 0.5 MG/2.5 ML NEBU INHALATION SCH ×2 (09:05→12:26)
[2022-03-31] MEDS: SYMBICORT 80-4.5 MCG INHALER INHALATION SCH (09:05)
--- NOTE | 2022-03-31 10:07 | P.CRDCN ---
History of Present Illness History of present illness: This is a pleasant 62-year-old male with a past medical history of hypertension, gout, and alcohol abuse, liver cirrhosis follows at [facility]. Patient does not follow with a float nurse. We have been consulted for orthostatic hypotension. Patient presented from inpatient rehab for complaints of lightheadedness. He states initially March 14, he was admitted to an outside hospital for dehydration, lightheadedness. At that time he was working outside in the heat,not eating/drinking much and almost passed out. He states he was hydrated, discharged and decided to get treatment at [place]. Over the past 2 weeks he states he has not been eating or drinking much. Day of admission, he stood up and was walking to take his medications, he felt lightheaded, leaned over to the wall, staff helped him sit down. He did not lose any consciousness. He did not fall. He was transported to ER for further evaluation. He denies any chest pain, shortness of breath, palpitations, nausea, or vomiting. He has never passed out or lost consiousness. He denies any history of CAD, [place], Stroke, or diabetes. He does endorse use of cocaine in the past. Denies any tobacco use. He states he has been an alcoholic for 45 years, drinking beer 4-6 daily. He states his last drink was 3 weeks ago. DIAGNOSTICS * EKG reveals sinus tachycardia, first-degree AV block, heart rate 108, nonspecific T-wave abnormalities. No acute ischemia noted.. * Telemetry tracings indicate sinus mechanism, heart rate 41573:[id number], no evidence of positive as, bradycardia, arrhythmia noted. * Chest xray no acute cardiopulmonary process * Echocardiogram EF 55%, mild mitral regurgitation * Laboratory reviewed, WBC 10.2, hemoglobin 9.0, platelets 154, sodium 139, potassium 4.4, BUN 16, serum creatinine 1.0, calcium 8.2, AST 129, ALT 55, alkaline phosphatase 253 * Current home cardiac medications include losartan 100 mg daily REVIEW OF SYSTEMS At the time of my exam: CONSTITUTIONAL: Denies fever or chills. CARDIOVASCULAR: Denies chest pain, shortness of breath, orthopnea, PND or palpitations. RESPIRATORY: Denies cough. GASTROINTESTINAL: Denies abdominal pain, diarrhea, constipation, nausea or vomiting. MUSCULOSKELETAL: Denies myalgias. NEUROLOGIC: Denies numbness, tingling, headacbe or weakness. ENDOCRINE: Denies fatigue, weight change, polydipsia or polyurina. GENITOURINARY: Denies burning, hematuria or urgency with micturation. HEMATOLOGIC: Denies history of anemia or bleeding. PHYSICAL EXAMINATION Supine Blood pressure 110/71, heart rate 94, afebrile, oxygen saturations on her percent room air Sitting blood pressure 104/70, heart rate 110 Standing blood pressure 85/58, heart rate 113 CONSTITUTIONAL: No apparent distress. HEENT: Head is normocephalic. Pupils are equal, round. Sclerae anicteric. Mucous membranes of the mouth are moist. No JVD. No carotid bruit. CHEST EXAMINATION: Lungs are clear to auscultation. No chest wall tenderness is noted on palpation or with deep breathing. HEART EXAMINATION: Regular rate and rhythm. S1, S2 heard. No murmurs, gallops or rub. ABDOMEN: Soft, nontender. Positive bowel sounds. EXTREMITIES: 2+ peripheral pulses, no lower extremity edema and no calf tende rness. NEUROLOGIC EXAMINATION: Patient is awake, alert and oriented x3. ASSESSMENT Lightheadedness, likely related to decreased PO intake, dehydration, and also taking losartan 100mg daily Orthostatic hypotension History of hypertension Alcohol abuse, recent quit 3 weeks ago currently in Rehab Liver disease PLAN Recommend continuing to hold Losartan at discharge Increase PO intake, educated patient on staying hydrated and taking it slow from lying to standing 2D echocardiogram reviewed EF 55%, no significant wall motion or valvular abnormalities No further inpatient workup from a cardiology perspective, please reach out with any further questions or concerns Monitor BP as an outpatient Discharge per primary Nurse practitioner note has been reviewed by physician. Signing provider agrees with the documented findings, assessment, and plan of care. Past Medical History Past Medical History: Hypertension Additional Past Medical History / Comment(s): Gout, alcohol abuse-last used 03/09/22 History of Any Multi-Drug Resistant Organisms: None Reported Past Surgical History: Orthopedic Surgery Additional Past Surgical History / Comment(s): spleenectomy, vasectomy Past Anesthesia/Blood Transfusion Reactions: No Reported Reaction Additional Past Anesthesia/Blood Transfusion Reaction / Comment(s): Pt has received platelets in the past without reaction. Smoking Status: Never smoker Past Alcohol Use History: Abuse Past Drug Use History: None Reported - Past Family History Father Family Medical History: No Reported History Additional Family Medical History / Comment(s): Father is healthy Mother Family Medical History: Hypertension Medications and Allergies Home Medications Medication Instructions Recorded Confirmed Type Ergocalciferol [Vitamin D2 (1250 1,250 mcg PO MO 03/29/22 03/29/22 History Mcg = 15417 Iu)] Fluticasone/Umeclidin/Vilanter 1 puff INHALATION RT-DAILY 03/29/22 03/29/22 History [Trelegy Ellipta 100-62.5-25] Folic Acid 1 mg PO DAILY 03/29/22 03/29/22 History Lansoprazole [Prevacid] 30 mg PO AC-BRKFST 03/29/22 03/29/22 History Losartan Potassium [Cozaar] 100 mg PO DAILY 03/29/22 03/29/22 History Magnesium Oxide [Mag-Ox] 400 mg PO BID 03/29/22 03/29/22 History Thiamine [Vitamin B-1] 100 mg PO DAILY 03/29/22 03/29/22 History allopurinoL [Zyloprim] 100 mg PO DAILY 03/29/22 03/29/22 History traZODone HCL [Desyrel] 50 - 150 mg PO HS 03/29/22 03/29/22 History Allergies Allergy/AdvReac Type Severity Reaction Status Date / Time No Known Allergies Allergy Verified 03/29/22 10:15 Physical Exam Vitals: Vital Signs Temp Pulse Pulse Pulse Resp BP BP 03/31/22 03:09 98/70 03/31/22 02:27 98.3 F 71 18 87/46 03/30/22 20:05 98.2 F 98 18 119/72 03/30/22 20:00 17 03/30/22 14:57 98.3 F 95 17 106/67 03/30/22 14:00 103 H 121 H 95 17 03/30/22 08:00 103 H 121 H 93 16 Pulse Ox 03/31/22 03:09 03/31/22 02:27 98 03/30/22 20:05 98 03/30/22 20:00 03/30/22 14:57 97 03/30/22 14:00 03/30/22 08:00 Intake and Output 03/30/22 03/31/22 03/31/22 22:59 06:59 14:59 Intake Total 118 Balance 118 Intake: Oral 118 Other: # Voids 2 1 Results 03/30/22 05:03 03/30/22 05:03 Cardiac Enzymes 03/30/22 Range/Units 05:03 AST 129 H (14-35) U/L CBC 03/30/22 Range/Units 05:03 WBC 10.27 H (4.50-10.00) X 10*3/uL RBC 2.50 L (4.40-5.60) X 10*6/uL Hgb 9.0 L (13.0-17.0) g/dL Hct 28.2 L (39.6-50.0) % Plt Count 154 (140-440) X 10*3/uL Comprehensive Metabolic Panel 03/30/22 Range/Units 05:03 Sodium 139 (135-145) mmol/L Potassium 4.4 (3.5-5.5) mmol/L Chloride 111 H (96-109) mmol/L Carbon Dioxide 19.5 L (20.0-27.5) mmol/L BUN 16.1 (9.0-27.0) mg/dL Creatinine 1.0 (0.6-1.5) mg/dL Glucose 89 (70-110) mg/dL Calcium 8.2 L (8.7-10.3) mg/dL AST 129 H (14-35) U/L ALT 55 H (10-49) U/L Alkaline Phosphatase 253 H (41-126) U/L Total Protein 4.7 L (6.2-8.2) g/dL Albumin 2.4 L (3.8-4.9) g/dL Current Medications Generic Name Dose Route Start Last Admin Trade Name Freq PRN Reason Stop Dose Admin Allopurinol 100 mg 03/30/22 09:00 03/30/22 09:25 Allopurinol 100 Mg Tab PO 100 mg DAILY MARK Administration Budesonide/Formoterol Fumarate 2 puff 03/30/22 08:00 03/30/22 19:51 Symbicort 80-4.5 Mcg Inhaler INHALATION Not Given RT-BID MARK Folic Acid 1 mg 03/30/22 09:00 03/30/22 09:25 Folic Acid 1 Mg Tab PO 1 mg DAILY MARK Administration Heparin Sodium (Porcine) 5,000 unit 03/30/22 00:00 03/30/22 22:51 Heparin Sodium,Porcine/Pf 5,000 Unit/0.5 Ml Syringe SQ 5,000 unit Q8HR MARK Administration Ipratropium [place] 0.5 mg 03/30/22 08:00 03/30/22 19:51 Ipratropium 0.5 Mg/2.5 Ml Nebu INHALATION Not Given RT-QID MARK Magnesium Oxide 400 mg 03/29/22 21:00 03/30/22 20:13 Magnesium Oxide 400 Mg Tab PO 400 mg BID MARK Administration Midodrine 5 mg 03/30/22 17:30 03/30/22 17:35 Midodrine 5 Mg Tab PO 5 mg AC-BID MARK Administration Naloxone HCl 0.2 mg 03/29/22 10:28 Naloxone 0.4 Mg/Ml 1 Ml Vial IV Q2M PRN Opioid Reversal Pantoprazole Sodium 40 mg 03/30/22 07:30 03/30/22 09:25 Pantoprazole 40 Mg Tablet PO 40 mg AC-BRKFST MARK Administration Trazodone HCl 50 mg 03/30/22 21:00 03/30/22 22:51 Trazodone Hcl 50 Mg Tab PO 50 mg HS MARK Administration Intake and Output 03/30/22 03/31/22 03/31/22 22:59 06:59 14:59 Intake Total 118 Balance 118 Intake: Oral 118 Other: # Voids 2 1 03/30/22 05:03 03/30/22 05:03
[2022-03-31 10:39] LABS: ALT 50 U/L (4-49); AST 138 U/L (17-59); African American GFR (CKD) >90 (>60 ml/min/1.73 sqM); Albumin 2.4 g/dL (3.5-5.0); Albumin/Globulin Ratio 0.8; Alkaline Phosphatase 273 U/L (38-126); Anion Gap 3 mmol/L; Blood Urea Nitrogen 12 mg/dL (9-20); Calcium 8.4 mg/dL (8.4-10.2); Carbon Dioxide 24 mmol/L (22-30); Chloride 109 mmol/L (98-107); Globulin 3.1 g/dL; Glucose 104 mg/dL (74-99); Non-African American GFR(CKD) 85 (>60 ml/min/1.73 sqM); Potassium 4.4 mmol/L (3.5-5.1); Sodium 136 mmol/L (137-145); Total Bilirubin 5.6 mg/dL (0.2-1.3); Total Protein 5.5 g/dL (6.3-8.2)
[2022-03-31 10:47] LABS: HCT 33.6 % (39.0-53.0); HGB 10.4 gm/dL (13.0-17.5); Hypochromasia Marked; MCH 37.2 pg (25.0-35.0); MCHC 30.8 g/dL (31.0-37.0); MCV 120.7 fL (80.0-100.0); Macrocytosis Marked; Mean Platelet Volume 11.7; Platelet Count 145 k/uL (150-450); RBC 2.79 m/uL (4.30-5.90); RDW 14.3 % (11.5-15.5); WBC 9.4 k/uL (3.8-10.6)
--- NOTE | 2022-03-31 11:35 | P.DS ---
Providers Date of admission: 03/29/22 17:36 Expected date of discharge: 03/31/22 Attending physician: Sasha Hernandez DO Consults: 03/30/22 17:23 Consult Physician Routine Consulting Provider: Chapo Marroquin Consult Reason/Comments: orthostatic hypotension Do you want consulting provider notified?: Yes Primary care physician: Physician Nonstaff Hospital Course: Discharge Diagnosis: Alcoholic liver cirrhosis, patient educated on the importance of alcohol cessation and the risks associated with continued use. Patient [facility] upon discharge. He is instructed to follow up outpatient with his experimental outboard motors mechanic at [facility] and reports he called and made a follow-up appointment in 2 weeks. Transaminitis and hyperbilirubinemia, secondary to above Macrocytic hyperchromic anemia, secondary to above Orthostatic hypotension, likely secondary to above. Losartan discontinued. Patient started on low dose of midodrine 5 mg twice a day. Patient also instructed to change positions slowly from lying to sitting, sitting to standing, and standing prior to walking. Dizziness/lightheadedness secondary to above Complex cystic lesion. Discussed with patient and Recommend outpatient follow-up with CT to further evaluate cystic lesion. Hypertension Monitor vital signs. Losartan discontinued secondary to significantly positive orthostatic vitals. Acute kidney injury, resolved Hospital Course: Patient is a very pleasant 62-year-old male with a past medical history of alcoholism with alcoholic liver cirrhosis currently in rehab reporting last alcoholic beverage being approximately 3 weeks ago, gout, hypertension, and history of a splenectomy. Patient presented to the emergency department 03/29/22 with a chief complaint of dizziness/lightheadedness. Patient reported he began experiencing these symptoms approximately 3 weeks ago after he stopped drinking and that since it has remained unchanged. He reported dizziness/lightheadedness only upon standing and stated this resolves simply by sitting or lying down. Patient denied having dizziness/lightheadedness if he turns his head in bed or upon sitting up in bed, reported only upon standing. Patient reported he came to the emergency department after becoming dizzy/lightheaded at [place] and lowering himself to the ground. He reported staff at [facility] sent him to the emergency department for evaluation. Patient also reported 10 years ago he was told he had the beginning stages of alcoholic liver cirrhosis, and recently underwent a colonoscopy with experimental outboard motors mechanic at [facility]. Patient states he has had chronic swelling in lower legs and yellowing of his eyes for many years. Patient denies ever being evaluated by a coffee brewer. Patient underwent full evaluation in the emergency department. EKG completed showing sinus tachycardia at 108 bpm with no noted T-wave or ST abnormalities showing no signs of acute ischemia. Chest x-ray negative for acute cardiopulmonary process. CBC revealing macrocytic hyperchromic anemia with hemoglobin of 10.4. BMP revealing hyperchloremia with chloride of 110 and elevated renal function with BUN 25, creatinine 1.61, and GFR 46 unknown baseline creatinine as no labs available for comparison. Initial lactic acid was 2.3 patient received a 1 L bolus with repeat lactate decreasing to 1.7. Liver profile revealing transaminitis and hyperbilirubinemia. AST 146, ALP 54, alkaline phosphatase of 296, and total bili of 6.8. An ultrasound of gallbladder was then completed revealing hepatic steatosis vs diffuse hepatocellular disease with partially contracted gallbladder and complex cystic lesion on the right kidney. MELD score 25. Patient was admitted under our services with consultation to gastroenterology. Patient monitored closely. He was found to have significant orthostatic hypotension with vitals as follows: BP Supine: 116/57 and heart rate 93; BP Sitting 106/70 and heart rate 103; and BP Standing 70/46 with heart rate 121. Initially treated with discontinuation of losartan and IV fluid hydration/bolus showing no improvement. Patient then started on low-dose of midodrine and an echocardiogram was completed. Echocardiogram revealed EF of 55% with mild atrial enlargement and mild mitral regurgitation. Consult was also placed to cardiology. Patient was evaluated by gastroenterology recommending patient follow-up outpatient with his experimental outboard motors mechanic for continued close m onitoring and treatment of alcoholic cirrhosis. Cardiology in agreement with discontinuation of losartan and recommending outpatient follow-up with chief fundraising officer. Patient is medically stable at this time. He is to return to [place] for continued detox of alcohol. Patient strongly encouraged to sustain from any further alcohol consumption in the future. Patient called and made follow-up appointment with his experimental outboard motors mechanic at [facility] in 2 weeks. Patient educated on importance of changing positions slowly from lying to sitting, sitting to standing, and standing prior to walking. Patient verbalized understanding and being started on midodrine 5 mg every 12 hours until further follow-up with chief fundraising officer and experimental outboard motors mechanic. Patient instructed to monitor vital signs daily and notify his PCP/chief fundraising officer/experimental outboard motors mechanic with any episodes of hypertension or persistently uncontrolled orthostatic hypotension. Physical exam: Vital signs reviewed and stable. General: Nontoxic, no distress and appears stated age. Derm: Skin warm and dry, jaundice Head: Atraumatic, normocephalic and symmetric. Eyes: EOMs intact, no lid lag, and scleral icterus present Mouth: no lip lesions, mucus membranes moist Cardiovascular: regular rate and rhythm with normal S1S2, systolic murmur, positive posterior tibial pulses bilaterally, and cap refill < 2 seconds. Lungs: Respirations even, regular, and unlabored on room air. Lungs CTA bilaterally, no rhonchi, no rales, no wheezing, and no accessory muscle usage. Abdominal: Cirrhotic abdomen, nontender to palpation, no guarding, Ext: ROM intact. No gross muscle atrophy, scant bilateral lower extremity edema, no contractures Neuro: Speech clear, face symmetrical and CN II-XII grossly intact with no noted focal neuro deficits Psych: Alert and oriented to person, place, time, and situation. Appropriate and pleasant affect. A total of 37 minutes of time were spent preparing this complex discharge summary. Pt was discharged on 03/31/22 at 11:34 AM I reviewed the documentation as provided by the BRAYDEN above, who is the original author of this note. I agree with the documented assessment and plan, with the following changes: none Patient Condition at Discharge: Stable Plan - Discharge Summary Discharge Rx Participant: No New Discharge Prescriptions: New Midodrine [ProAmatine] 5 mg PO AC-BID 30 Days #60 tab traZODone HCL [Desyrel] 50 mg PO HS tab Continue Thiamine [Vitamin B-1] 100 mg PO DAILY Folic Acid 1 mg PO DAILY Ergocalciferol [Vitamin D2 (1250 Mcg = 38245 Iu)] 1,250 mcg PO MO Magnesium Oxide [Mag-Ox] 400 mg PO BID Fluticasone/Umeclidin/Vilanter [Trelegy Ellipta 100-62.5-25] 1 puff INHALATION RT-DAILY Lansoprazole [Prevacid] 30 mg PO AC-BRKFST allopurinoL [Zyloprim] 100 mg PO DAILY Discontinued traZODone HCL [Desyrel] 50 - 150 mg PO HS Losartan Potassium [Cozaar] 100 mg PO DAILY Discharge Medication List Ergocalciferol [Vitamin D2 (1250 Mcg = 82778 Iu)] 1,250 mcg PO MO 03/29/22 [History] Fluticasone/Umeclidin/Vilanter [Trelegy Ellipta 100-62.5-25] 1 puff INHALATION RT-DAILY 03/29/22 [History] Folic Acid 1 mg PO DAILY 03/29/22 [History] Lansoprazole [Prevacid] 30 mg PO AC-BRKFST 03/29/22 [History] Magnesium Oxide [Mag-Ox] 400 mg PO BID 03/29/22 [History] Thiamine [Vitamin B-1] 100 mg PO DAILY 03/29/22 [History] allopurinoL [Zyloprim] 100 mg PO DAILY 03/29/22 [History] Midodrine [ProAmatine] 5 mg PO AC-BID 30 Days #60 tab 03/31/22 [Rx] traZODone HCL [Desyrel] 50 mg PO HS tab 03/31/22 [Rx] Follow up Appointment(s)/Referral(s): Chapo Marroquin DO [STAFF PHYSICIAN] - 1 Week (Recommend following up with chief fundraising officer as we discussed, I understand you wanted to follow with physician at [facility], if you do not have a chief fundraising officer or are in need of a different one, recommend initiating care with one as soon as possible. This provider as recommended.) Bill Barraza MD [STAFF PHYSICIAN] - 1 Week (Recommend following up with your PCP as we discussed, if you do not have one or are in need of a different one, recommend initiating care with a PCP immediately. This provider as recommended.) Reyna Hernández MD [STAFF PHYSICIAN] - 1 Week (Recommend following up with your experimental outboard motors mechanic as you reported is scheduled with [facility]. If at any time you are in need of a different provider, recommend initiating care with a experimental outboard motors mechanic immediately. This provider as recommended.) Activity/Diet/Wound Care/Special Instructions: Activity: As tolerated. Take breaks as needed. As we discussed, it is very important for you to change positions slowly from lying to sitting, sitting to standing, and upon standing before walking. If you feel dizzy or lightheaded it is important to sit back down. Diet: Heart healthy and carb consistent diet. Avoid salts, or foods with hidden salts such as canned or boxed foods and frozen dinners. Extra salt makes your heart work harder and traps the fluid in your body for longer. Special Instructions: Take all of your medications as directed and remember to keep all of your doctor's appointments and follow-up as needed. As you reported you made a follow-up appointment with your experimental outboard motors mechanic with [facility]. It is of utmost importance to follow up with your experimental outboard motors mechanic and strongly recommend to undergo an evaluation by a hepat ologist. Good luck on your continued journey with sobriety. I am glad you decided to return to [place] to complete your rehab. Truly wish you the best!!!! Thank you for allowing us to participate in your care, it was truly a pleasure having you for our patient!!! Complex cystic lesion. Discussed with patient and advised him he will need outpatient follow-up with his PCP and recommend CT to further evaluate cystic lesion after discharge from [place]. At d/c nurse to call report to [place] Discharge Disposition: HOME SELF-CARE
--- NOTE | 2022-04-03 18:18 | CDI ---
Documentation Clarification Form Date: 04/03/2022 05:47:13 PM From: Ashlie Schwarz Phone: Admit Date: 03/29/2022 05:36:00 PM Patient Name: Domo Baeza Visit Number: [id number] Discharge Date: 03/31/2022 03:02:00 PM ATTENTION: The Clinical Documentation Specialists (CDI) and [facility] Coding Staff appreciate your assistance in clarifying documentation. Please respond to the clarification below the line at the bottom and electronically sign. The CDI & [facility] Coding staff will review the response and follow-up if needed. Please note: Queries are made part of the Legal Health Record. If you have any questions, please contact the author of this message via ITS. Dr. Sasha Hernandez Hepatic steatosis is documented per ED Note and patient is noted to have skilled nursing ETOH abuse in recent remission. Please clarify if there is a relationship between the Hepatic steatosis and skilled nursing ETOH abuse. History/Risk Factors: 62yo M, Alcoholic liver cirrhosis, Transaminases, Hyperbilirubinemia, Alcohol abuse currently in rehab, HTN, Hx Gout Dehydration, KEITH, Orthostatic hypotension, Hyperbilirubinemia, 1D AVB Clinical Indicators: Transaminases, hyperbilirubinemia, Macrocytic hyperchromicanemia, Dizziness/lightheadedness, orthostatic hypotension, all likely d/t Alcoholic liver cirrhosis. Treatment: Losartan discontinued. Patient started on low dose of midodrine 5 mg twice a day. Please clarify the relationship, if any, which is clinically appropriate for this patient: [ ] Hepatic steatosis is due to termite inspector ETOH abuse [ ] Hepatic steatosis is not due to skilled nursing ETOH abuse [ ] Other explanation of clinical findings (please specify) [ ] Unable to determine (no explanation for clinical findings) Already documented that it is cirrhosis due to alcohol... which is after hepatic steatosis progresses to cirrhosis MTDD
== END 2022-03-31 15:02 | disposition home or self-care (01) | DRG 433 ==
LOC: EC 08:11 → 6NMEDSUR 10:29 → OBSVTOIN 17:36
PROVIDERS: ADMIT Internal Medicine; ATTEND Internal Medicine
DX: K70.30 Alcoholic cirrhosis of liver without ascites (principal); K82.0 Obstruction of gallbladder; N17.9 Acute kidney failure, unspecified; D53.9 Nutritional anemia, unspecified; F10.11 Alcohol abuse, in remission; I10 Essential (primary) hypertension; I34.0 Nonrheumatic mitral (valve) insufficiency; K76.0 Fatty (change of) liver, not elsewhere classified; E87.8 Other disorders of electrolyte and fluid balance, not elsewhere classified; I95.1 Orthostatic hypotension; R00.0 Tachycardia, unspecified; N28.1 Cyst of kidney, acquired; I44.0 Atrioventricular block, first degree; E86.0 Dehydration; E80.6 Other disorders of bilirubin metabolism; R60.0 Localized edema; L56.8 Other specified acute skin changes due to ultraviolet radiation; Z87.39 Personal history of other diseases of the musculoskeletal system and connective tissue; Z79.51 Long term (current) use of inhaled steroids; Z90.81 Acquired absence of spleen; Z98.52 Vasectomy status; Z79.899 Other long term (current) drug therapy; Z82.49 Family history of ischemic heart disease and other diseases of the circulatory system
CPT/HCPCS: 36415; 71046; 76705; 80053; 80306; 80320; 81003; 82009; 82140; 82150; 83605; 83690; 85025; 85027; 85610; 93005; 93306; 96360; 96361; 99285